=== PATIENT | male | born 1995 | race Hispanic/Latino ===

== ENCOUNTER 2022-07-10 17:07 | Emergency (ER) | payer OTHER ==
[~2022-07-10] VITALS: Ht 175.3 cm; Wt 65.8 kg
[2022-07-10 17:09] VITALS: BP 141/77
[2022-07-10] MEDS ORDERED: CEFTRIAXONE 1G VIAL IVP ONE (20:30)
[2022-07-10] MEDS ORDERED: CEFTRIAXONE 1G VIAL ONE (20:52)
[2022-07-10] MEDS ORDERED: LIDOCAINE HCL 1% 20 ML VIAL IM SCH (21:00)
[2022-07-10] MEDS ORDERED: CEFD300C3 PO (21:00)
== END 2022-07-10 21:49 | disposition home or self-care (01) ==
LOC: EDH 17:07
DX: K04.7 Periapical abscess without sinus (principal)
CPT/HCPCS: 99284; 96374; 96372; J0696